=== PATIENT | female | born 1950 | race Caucasian/White ===

== ENCOUNTER → 2018-07-06 09:08 | Outpatient (CLI) | payer MEDICARE, SELFPAY ==
--- NOTE | 2018-07-06 09:24 | BD_ITS ---
STUDY: DUAL ENERGY X-RAY ABSORPTIOMETRY / DXA REASON FOR EXAM: Female, 68 years old. Postmenopausal screening TECHNIQUE: Bone Mineral Density (BMD) measurements of lumbar spine and bilateral hips were obtained. COMPARISON: None. FINDINGS: Lumbar Spine (L1-L4): g/cm2 1.107) / T-score (-0.6) / Z-score (1.0) Findings are suggestive of normal bone density with a low fracture risk. Left Femur Total: g/cm2 (0.671) / T-score (-2.7) / Z-score (-1.3) Left Femoral Neck: g/cm2 (0.579) / T-score (-3.3) / Z-score (-1.7) Right Femur Total: g/cm2 (0.714) / T-score (-2.3) / Z-score (-1.0) Right Femoral Neck: g/cm2 (0.636) / T-score (-2.9) / Z-score (-1.3) BD/Dexa Bone Density Study IMPRESSION: The patient is considered osteoporotic as outlined below according to World Stoney Organization (WHO) criteria with a high fracture risk. Reference Information: The T-score is the number of standard deviations above or below the standard which is normal for young adults at their peak bone mineral density. The World Health Organization (WHO) interprets the T-scores as follows: Above -1 Normal bone density Between -1 and -2.5 Osteopenia Equal to / or below -2.5 Osteoporosis As a practical clinical guideline, osteopenia may be graded as follows: Mild -1 through -1.5 Moderate -1.6 through -2.0 Severe -2.1 through -2.4 The Z-score is the number of standard deviations above or below age-matched controls. A Z-score of less than -1.5 would be considered abnormal. References: 1. NIH Osteoporosis and Related Bone Diseases http://www.osteo.org 2. International Society for Clinical Densitometry http://www.iscd.org 3. National Osteoporosis Foundation http://www.nof.org Electronically Signed: Larry Alaniz MD at 8:46 EDT , Service support ,
== END ==
PROVIDERS: Family Provider Family Medicine; PCP Family Medicine; Visit Provider Family Medicine
DX: Z78.0 Asymptomatic menopausal state (principal)
CPT/HCPCS: 77080

== ENCOUNTER → 2018-07-14 09:16 | Outpatient (CLI) | payer MEDICARE, SELFPAY ==
[2018-07-14 13:00] LABS: Vitamin D,25 Hydroxy 31.1 ng/mL (29.95-100.01)
[2018-07-14 13:11] LABS: Anion Gap 7 (5-15); BUN 16 mg/dL (7-18); BUN/Creat Ratio 20.9 RATIO (10-20); Calcium,Total 8.7 mg/dL (8.5-10.1); Chloride 106 mmol/L (98-107); Creatinine, Serum 0.76 mg/dL (0.55-1.02); EST Glomerular Filtration Rate 80 mL/min (>60); Est Glom Filt Rate - Afr Amer 97 mL/min (>60); Glucose 82 mg/dL (74-106); Potassium 3.8 mmol/L (3.5-5.1); Sodium Level 140 mmol/L (136-145)
== END ==
PROVIDERS: Family Provider Family Medicine; PCP Family Medicine; Visit Provider Family Medicine
DX: M81.0 Age-related osteoporosis without current pathological fracture (principal)
CPT/HCPCS: 36415; 80048; 82306

== ENCOUNTER 2021-03-09 16:11 | Emergency (ER) | payer MEDICARE, SELFPAY ==
[2021-03-09 16:12] VITALS: BP 151/77; PULSE 75; RESP 16; TEMP 36.6; O2SAT 98; BMI 18.6
--- NOTE | 2021-03-09 16:21 | EDS_ITS ---
HPI History of Present Illness Chief Complaint: Upper Extremity Injury Informant: patient Onset/Context/Timing Onset: Today Current Severity: Mild Maximum Severity: Moderate Narrative Narrative: Patient presents with injury to the left third finger. She states she was scrubbing carpets and stoved her left third finger. She felt a pop and now cannot fully straighten her finger. She is right-hand dominant. She denies paresthesias. No other injury. [facility] Medical History Osteoporosis Home Medications NK 03/09/21 [History Last Taken Unknown] Allergy/AdvReac Type Severity Reaction Status Date / Time No Known Allergies Allergy Verified 03/09/21 16:11 Social History Smoking Status: Never smoker ROS ROS ED Constitutional Constitutional ED: Denies chills or fever(s) Eyes Eyes: Denies change in vision ENT ENT ED: Denies sore throat Cardiovascular Cardiovascular: Denies chest pain Respiratory/Chest Respiratory/Chest: Denies cough or dyspnea Gastrointestinal Gastrointestinal: Denies abdominal pain, diarrhea, nausea or vomiting Genitourinary Genitourinary ED: Denies dysuria Musculoskeletal Musculoskeletal: Reports other Details: Left third finger Integumentary Denies rash Neurologic Neurologic: Denies headache(s) or weakness Psychiatric Psychiatric: Denies anxiety or depression Endocrine Endocrinology: Denies polydipsia or polyuria Allergic/Immunologic Allergic/Immunologic ED: Denies urticaria EXAM Physical Exam Const Vital Signs: 03/09/21 16:12 Temperature 97.8 F Temperature Source Temporal Pulse Rate 75 Respiratory Rate 16 Blood Pressure 151/77 H Blood Pressure Mean 101 Pulse Ox 98 Oxygen Delivery Method Room Air Positive well nourished and well developed General Appearance ED: well developed HEENT normocephalic Eyes EOMs intact bilaterally Chest Wall inspection of chest normal and palpation of chest normal Resp normal respiratory effort and clear to auscultation bilaterally Cardio regular rate and regular rhythm GI non-tender Palpation: soft Extremity Extremity Narrative: Left third finger held slightly in the flexed position, most pronounced at the DIP joint. Mild tenderness to palpation. Patient unable to fully extend her finger. I am easily able to passively extend her finger. Normal cap refill and sensation. Neuro oriented x3 Sensorium / Orientation: alert Psych mental status grossly normal Skin Rashes: no rashes MDM MDM Radiography Diagnostic Testing: Radiology Impression Hand X-Ray 03/09/21 16:30 IMPRESSION: Negative left hand x-rays. at 1657 Reported and signed by: Omer Aranda MD Electronically Signed: Omer Aranda MD at 16:56 EDT Tel , Service support , Treatment and Re-Evaluation Comments:: Patient declined anything for pain while here. X-rays are obtained. No bony fracture noted. Clinically patient does have a mallet finger. She is splinted in extension and advised that this cannot come off her finger until she is seen for follow-up. She will be referred to Dr. Wally Carlson, on-call for orthopedics. Discharge Plan Triage Chief Complaint: Upper Extremity Injury ED Provider: Kerri Boss Dx/Rx/DC Orders Clinical Impression: Mallet deformity of left middle finger Instructions: ED Mallet Finger Prescriptions: No Action NK RF: 0 Primary Care Provider: Alfredo Morris Referrals: Alfredo Morris MD [Primary Care Provider] - Wally Carlson MD [STAFF PHYSICIAN] - 1 Week Disposition Disposition: Home, self care
--- NOTE | 2021-03-09 16:30 | RAD_ITS ---
EXAM: XR LEFT HAND COMPLETE, 3 OR MORE VIEWS : 1950 CLINICAL INDICATION: injury* PT UNABLE TO REMOVE WEDDING RING FOR EXAM TECHNIQUE: Frontal, lateral and oblique views of the left hand. This report was created using [employer] report generation technology. COMPARISON: None. FINDINGS: BONES/JOINTS: Unremarkable. No acute fracture. No subluxation. Normal alignment. Preservation of the joint space. No sclerotic or destructive changes observed. SOFT TISSUES: Unremarkable. No soft tissue swelling or gas. No radiopaque foreign body. RAD/Hand Min 3 Views IMPRESSION: Negative left hand x-rays. at 3307 Reported and signed by: Omer Aranda MD Electronically Signed: Omer Aranda MD at 16:56 EDT Tel , Service support ,
== END 2021-03-09 17:36 | disposition home or self-care (01) ==
PROVIDERS: Emergency Provider Emergency Medicine; PCP Family Medicine
DX: M20.012 Mallet finger of left finger(s) (principal)
CPT/HCPCS: 73130; 99282

== ENCOUNTER 2021-11-28 08:16 | Outpatient (CLI) | payer MEDICARE, SELFPAY ==
--- NOTE | 2021-11-28 08:25 | BD_ITS ---
STUDY: DUAL ENERGY X-RAY ABSORPTIOMETRY / DXA REASON FOR EXAM: Female, 71 years old. M810. Patient is postmenopausal. TECHNIQUE: Bone Mineral Density (BMD) measurements of lumbar spine and bilateral hips were obtained. COMPARISON: Comparison is made with prior study 07/06/2018. FINDINGS: Lumbar Spine (L1-L4): g/cm2 (0.957) / T-score (-0.8) / Z-score (1.4) Findings are suggestive of normal bone density with a low fracture risk. Left Femur Total: g/cm2 (0.674) / T-score (-2.2) / Z-score (-0.6) Left Femoral Neck: g/cm2 (0.545) / T-score (-2.7) / Z-score (-0.9) Right Femur Total: g/cm2 (0.712) / T-score (-1.9) / Z-score (-0.3) Right Femoral Neck: g/cm2 (0.558) / T-score (-2.6) / Z-score (-0.7) The T-Scores on the most recent prior examination were: Lumbar Spine (L1-L4): There has been worsening of bone density since the previous examination. Left Femur Total: which represents an improvement of 9.8%. Right Femur Total: which represents an improvement of 8.5%. BD/Dexa Bone Density Study IMPRESSION: The patient is considered osteoporotic as outlined below according to World Stoney Organization (WHO) criteria with a high fracture risk. There has been improvement of bone density since the previous examination. Reference Information: The T-score is the number of standard deviations above or below the standard which is normal for young adults at their peak bone mineral density. The World Health Organization (WHO) interprets the T-scores as follows: Above -1 Normal bone density Between -1 and -2.5 Osteopenia Equal to / or below -2.5 Osteoporosis As a practical clinical guideline, osteopenia may be graded as follows: Mild -1 through -1.5 Moderate -1.6 through -2.0 Severe -2.1 through -2.4 The Z-score is the number of standard deviations above or below age-matched controls. A Z-score of less than -1.5 would be considered abnormal. References: 1. NIH Osteoporosis and Related Bone Diseases www osteo.org 2. International Society for Clinical Densitometry www iscd.org 3. National Osteoporosis Foundation www nof.org Electronically Signed: Shabbir Adam MD at 8:37 EST ,
[2021-11-28 11:27] LABS: Anion Gap 3 (5-15); BUN 16 mg/dL (7-18); BUN/Creat Ratio 20.1 RATIO (10-20); Calcium,Total 8.7 mg/dL (8.5-10.1); Chloride 108 mmol/L (98-107); Cholesterol 231 mg/dL (200); EST Glomerular Filtration Rate 75 mL/min (>60); Est Glom Filt Rate - Afr Amer 91 mL/min (>60); Glucose 83 mg/dL (74-106); High Density Lipoprotein 100 mg/dL; Potassium 4.5 mmol/L (3.5-5.1); Sodium Level 141 mmol/L (136-145); Triglycerides 66 mg/dL; Very Low Density Lipoprotein 13 mg/dL (5-40)
== END 2021-11-28 23:59 | disposition home or self-care (01) ==
LOC: OPBD 08:17
PROVIDERS: PCP Family Medicine; Visit Provider Family Medicine
DX: M81.0 Age-related osteoporosis without current pathological fracture (principal); Z78.0 Asymptomatic menopausal state
CPT/HCPCS: 36415; 77080; 80048; 80061

== ENCOUNTER → 2022-11-19 | Outpatient (CLI) | payer MEDICARE, SELFPAY ==
[2022-11-19 15:10] LABS: Absolute Lymphocyte Count 1.57 X10^3/uL (0.83-4.51); Absolute Neutrophil Count 2.8 X10^3/uL (2.0-7.7); Basophil# 0.05 X10^3/uL; Eosinophil# 0.11 X10^3/uL; Eosinophils% 2.3 % (0-5); Hematocrit 40.1 % (37-47); Lymphocyte # 1.57 X10^3/ul (0.83-4.51); Lymphocyte % 32.5 % (19-41); Mean Corp Hgb Conc 32.4 g/dL (32-36); Mean Corpuscular Hgb 31.2 pg (27.0-32.0); Mean Corpuscular Volume 96.2 fL (81-99); Mean Platelet Vol. 9.4 fl (6.2-12.0); Monocyte# 0.29 X10^3/uL; NRBC Flagged by Analyzer 0 % (0-5); Platelet Count 215 K/mm3 (150-450); RBC Distribution Width CV 11.9 % (11.6-14.6); RBC Distribution Width SD 41.9 fl (35.1-43.9); Red Blood Count 4.17 M/mm3 (4.2-5.4); White Blood Count 4.8 K/mm3 (4.4-11.0)
[2022-11-19 15:37] LABS: ALB/GLOB Ratio 1.2 RATIO (0.9-2.4); AST(SGOT) 19 U/L (15-37); Alanine Aminotransfer ALT/SGPT 18 U/L (13-56); Albumin, Serum 3.9 g/dL (3.2-5.0); Alkaline Phosphatase 77 U/L (45-117); Anion Gap 6 (5-15); BUN 23 mg/dL (7-18); BUN/Creat Ratio 27.8 RATIO (10-20); Calcium,Total 9.4 mg/dL (8.5-10.1); Chloride 107 mmol/L (98-107); Creatinine, Serum 0.83 mg/dL (0.55-1.02); EST Glomerular Filtration Rate 72 mL/min (>60); Est Glom Filt Rate - Afr Amer 87 mL/min (>60); Globulin 3.2 g/dL (2.2-4.2); Glucose 81 mg/dL (74-106); Protein, Total 7.1 g/dL (6.4-8.2); Sodium Level 143 mmol/L (136-145)
== END | disposition home or self-care (01) ==
LOC: MFPLAB 11:42
PROVIDERS: PCP Family Medicine; Referring Provider Family Medicine; Visit Provider Nurse Practitioner Family
DX: R31.9 Hematuria, unspecified (principal)
CPT/HCPCS: 36415; 80053; 82043; 85025; 87086; 87088

== ENCOUNTER → 2022-12-10 | Outpatient (CLI) | payer MEDICARE, SELFPAY ==
--- NOTE | 2022-12-10 | CYSPIN_PTH ---
PATIENT: GARRETT AGGARWAL LOC: [facility] U#:[id number] AGE/SX: 72/F ROOM: RE12/10/[address]: Dr. Janny Kline MD : 1950 BED: DIS: 12/10/2022 SPEC #: [id number] RECD: 12/11/22 09:26 STATUS: ANNEMARIE REMynor #: [id number] HOLLI: 12/10/22 00:[address]: Janny Kline DEPT: CYTOLOGY RECD BY: Osiel Gann ENTERED: 12/11/22 09:26 SP TYPE: CYSPIN FL OTHR DR: Dr. Alfredo Morris MD Tissues: Urine Procedures: Pap Stain (control) Special Stain Group II Cytospin Fluid HEADER OPERATION: Not noted PRE-OP DIAGNOSIS: Gross hematuria TISSUE SUBMITTED: Urine for cytology DIAGNOSIS CYTOLOGY Urine for cytology (cytospin): Atypical urothelial cells present (LISA), Roselia Cytology Category III). Bloody specimen. See comment. DESI:tonie 12/12/2022 COMMENT Clinical correlation and appropriate follow up are necessary. The Roselia System for urine cytology diagnostic categorization was used in the evaluation of this case. CYTOLOGY STUDY Slides are reviewed. CYTOLOGY GROSS Received is 15 ml of dark brown fluid labeled with the patient's name and and designated per the requisition as urine. Submitted for cytology preparation. / tonie 12/11/2022 TC:5 CPT: 06296
[2022-12-10 17:52] LABS: Cytology, Body Fluid / CSF SEE PATHOLOGY REPORT
== END | disposition home or self-care (01) ==
PROVIDERS: PCP Family Medicine; Visit Provider Urology
DX: R31.0 Gross hematuria (principal)
CPT/HCPCS: 88108; 88313

== ENCOUNTER → 2022-12-24 | Outpatient (CLI) | payer MEDICARE, SELFPAY ==
--- NOTE | 2022-12-24 13:48 | CT_ITS ---
STUDY: CT ABDOMEN AND PELVIS WITH AND WITHOUT CONTRAST REASON FOR EXAM: Female, 72 years old. GROSS HEMATURIA RADIATION DOSAGE (If Supplied By Facility): CTDIvol = ( 10.10 ) mGy, DLP = ( 1066.11 ) mGycm TECHNIQUE: Transaxial images were obtained from the dome of the diaphragm to the symphysis pubis without oral contrast. 100 CC ISOVUE 30 was administered. Sagittal and coronal images were reconstructed. Individualized dose optimization techniques were used for this CT. COMPARISON: None. FINDINGS: Nodular density seen in the anterior aspect of the left lower lobe. The largest nodule measures [address] scan of the thorax is recommended for further evaluation. The visualized portions of the heart are within normal limits. There is a 1.9 cm x 1.6 cm septated cyst in the left lobe of the liver. Small gallstones along the dependent portion of the gallbladder lumen. Normal spleen. Normal pancreas. Normal bilateral adrenal glands. Tiny nonobstructive right intrarenal calculi are seen. There is a 1 cm x 0.6 cm calculus at the left ureteropelvic junction causing a mild degree of left hydronephrosis. Normal visualized stomach. Normal small intestine. Normal colon. The appendix is visualized and appears normal. Normal abdominal aorta. Normal inferior vena cava. Normal retroperitoneum. Normal urinary bladder. Normal abdominal wall. There are degenerative changes of the visualized lumbar spine. CT/CT Abd/Pelvis W/WO Contrast IMPRESSION: Mild degree of the left hydronephrosis due to a 1 cm x 0.6 and metaphysis of the left ureteropelvic junction. Tiny nonobstructive right intrarenal calculi. Small pulmonary nodule seen at the left lung base as described. The largest measures 1 cm. Correlation with a dedicated CT scan of the thorax is recommended for further evaluation Small hepatic cyst seen in the left lobe of the liver. Small gallstones along the dependent portion of the gallbladder lumen. Electronically Signed: Shabbir Adam MD at 13:25 EDT ,
[2022-12-24 14:20] LABS: CREATININE FINGERSTICK < 0.9 mg/dL (0.55-1.02); EGFR FINGERSTICK > 60.0000 mL/min (>60)
== END | disposition home or self-care (01) ==
PROVIDERS: PCP Family Medicine; Referring Provider Urology; Visit Provider Urology
DX: R31.0 Gross hematuria (principal); R10.9 Unspecified abdominal pain
CPT/HCPCS: 74178; Q9967

== ENCOUNTER → 2022-12-26 | Outpatient (CLI) | payer MEDICARE, SELFPAY ==
--- NOTE | 2022-12-26 11:35 | RAD_ITS ---
EXAM: XR ABDOMEN, 1 VIEW CLINICAL INDICATION: KUB- STONES TECHNIQUE: Frontal supine view of the abdomen/pelvis. This report was created using [employer] report generation technology. COMPARISON: None. FINDINGS: LOWER THORAX: No acute pathology. GASTROINTESTINAL TRACT: Unremarkable. Non-obstructive. No bowel or stomach distention. ORGANS: Unremarkable as visualized. No organomegaly. No abnormal calcifications. BONES/JOINTS: No acute pathology. SOFT TISSUES: No acute pathology. RAD/Abdomen Single View IMPRESSION: Non-obstructive bowel gas pattern. Electronically Signed: Omer Aranda MD at 21:58 EDT ,
== END | disposition home or self-care (01) ==
LOC: MTRAD 11:34
PROVIDERS: PCP Family Medicine; Referring Provider Urology; Visit Provider Urology
DX: N20.0 Calculus of kidney (principal)
CPT/HCPCS: 74018

== ENCOUNTER → 2023-01-05 | Outpatient (CLI) | payer MEDICARE, SELFPAY ==
--- NOTE | 2023-01-05 15:01 | CT_ITS ---
ACR Level 3 findings have been noted. An addendum which confirms receipt of the report will follow. There is INDICATION: LUNG NODULE EXAMINATION: CT Chest W/ Contrast Injection TECHNIQUE: Helically acquired images were obtained of the chest following administration of IV contrast. A radiation dose optimization technique was used for this scan. 3D postprocessing images including MIPS were reviewed. IV Contrast dosage and agent: IV 100mL Isovue-300 COMPARISON: None. FINDINGS: Lungs: There are clustered nodular and tree-in-bud opacities involving the lingula and left lower lobe Mediastinum: The cardiomediastinal silhouette is not enlarged. No mediastinal, hilar or axillary adenopathy. The thoracic aorta is unremarkable. No obvious filling defect seen within the visualized pulmonary arteries. Pleura: Unremarkable Bones/Soft tissues: No suspicious osseous or soft tissue lesions Upper abdomen: No visualized abnormalities in the upper abdomen. CT/Chest WITH Contrast IMPRESSION: Clustered nodular and tree-in-bud opacities involving the lingula and left lower lobe. This is most concerning for atypical infection. Recommend short-term follow-up chest CT to ensure resolution. Electronically Signed: Noble Kelley MD at 19:14 EDT ,
== END | disposition home or self-care (01) ==
LOC: CT 14:53
PROVIDERS: PCP Family Medicine; Referring Provider Family Medicine; Visit Provider Family Medicine
DX: R91.1 Solitary pulmonary nodule (principal)
CPT/HCPCS: 71260; Q9967

== ENCOUNTER → 2023-01-06 | Outpatient (CLI) | payer MEDICARE, SELFPAY | END | disposition home or self-care (01) | LOC: PSN 12:18 | PROVIDERS: PCP Family Medicine; Referring Provider Urology; Visit Provider Urology | DX: N20.1 Calculus of ureter (principal) | CPT/HCPCS: 93005 ==

== ENCOUNTER 2023-01-15 11:16 | Day surgery (SDC) | payer MEDICARE, SELFPAY ==
[2023-01-15] VITALS (7 sets, daily range): BP systolic 133–172; BP diastolic 55–98; PULSE 61–94; RESP 16; TEMP 35.8–36.6; O2SAT 97–100; BMI 17.9
[2023-01-15] MEDS: Lactated Ringers 1,000 ML 15 ML IV (11:56)
--- NOTE | 2023-01-15 12:12 | PCM.HP.STD ---
HPI - General General Chief Complaint: Gross hematuria, left UPJ calculus with obstruction HPI Narrative GARRETT AGGARWAL, is a 72 F who presents for definitive management of a left UPJ stone with obstruction and gross hematuria. Informed consent has been obtained. She has had no nausea, vomiting, fever, chills. She has a negative preoperative urine culture. [facility] Medical History (Updated 01/15/23 @ 12:[address] Janny Kline MD) Gross hematuria History of perineal laceration History of stress test Hoarseness Non-smoker Obstruction of left ureteropelvic junction due to stone Osteoporosis Wears contact lenses Wears glasses Home Medications alendronate 70 mg-cholecalciferol (vitamin D3) 2,800 unit tablet 1 tab PO QWEEK 01/09/23 [History Last Taken Unknown] Allergy/AdvReac Type Severity Reaction Status Date / Time No Known Allergies Allergy Verified 01/15/23 11:49 Surgical History History of colonoscopy Social History Smoking Status: Never smoker ROS Constitutional Constitutional: Reports systems reviewed and no addt'l complaints, except as documented Eyes Eyes: Reports systems reviewed and no addt'l complaints, except as documented ENT HEENT: Reports systems reviewed and no addt'l complaints, except as documented Cardiovascular Cardiovascular: Denies chest pain, diaphoresis, dizziness or dyspnea Respiratory/Chest Respiratory/Chest: Reports systems reviewed and no addt'l complaints, except as documented; Denies change in mental status, chest congestion, chest tightness or cough Gastrointestinal Gastrointestinal: Denies anorexia, nausea or vomiting Genitourinary Genitourinary: Reports hematuria; Denies flank pain Musculoskeletal Musculoskeletal: Reports systems reviewed and no addt'l complaints, except as documented Integumentary Integumentary: Reports systems reviewed and no addt'l complaints, except as documented Neurologic Neurologic: Reports systems reviewed and no addt'l complaints, except as documented Psychiatric Psychiatric: Reports systems reviewed and no addt'l complaints, except as documented Endocrine Endocrinology: Reports systems reviewed and no addt'l complaints, except as documented Hematologic/Lymphatic Hematologic/Lymphatic: Reports systems reviewed and no addt'l complaints, except as documented Allergic/Immunologic Allergic/Immunologic: Reports systems reviewed and no addt'l complaints, except as documented Vital Signs Vital Signs Vital Signs: 01/15/23 11:50 01/15/23 11:50 Temperature 97.4 F L Temperature Source Temporal Pulse Rate 61 Respiratory Rate 16 Respiratory Pattern Normal Blood Pressure 133/55 H Blood Pressure Mean 81 Blood Pressure Source Monitor Blood Pressure Position Sitting Blood Pressure Location Left Arm Pulse Ox 100 Oxygen Delivery Method Room Air Weight Weight: 49 kg Body Mass Index (BMI) 17.9 Physical Exam Const alert, oriented x3 and no apparent distress General Appearance: cooperative, comfortable and well kempt HEENT normocephalic and head/scalp atraumatic Eyes General Eye: normal appearance of both eyes Neck supple General: trachea midline Lymph Lymphatic: no lymphedema noted Chest inspection of chest normal Resp normal respiratory effort, normal air movement and no retractions Cardio regular rate and regular rhythm GI normal to inspection, nondistended, normoactive bowel sounds no CVA tenderness Back/Spine no CVA tenderness Extremity normal to inspection Skin no rashes or lesions noted, no wounds, skin turgor normal, no jaundice, no petechiae and no mottling Neuro oriented x3, CN's II-XII intact bilaterally and moves all extremities Psych mental status grossly normal, thought process normal and cooperative Assessment & Plan Assessment/Plan (1) Obstruction of left ureteropelvic junction due to stone: PLAN: Plan cystoscopy with left ureteral stent insertion, left extracorporeal shockwave lithotripsy
[2023-01-15] MEDS: Cefazolin 2 GM in 0.9% Normal Saline 100 ML IV (12:13)
--- NOTE | 2023-01-15 12:16 | DCINST_ITS ---
Discharge Instructions Diet Discharge Diet: No restrictions Activity Discharge Activity: Return to Normal Activity May resume sexual activity in: No Restrictions Dressing / Incision Call your doctor if you observe: Fever of 101 or Higher, Inability to urinate and Inability to have a bowel movement Follow Up Care Please Follow Up With: Janny Kline MD When: call the office for appt Test Results: Test results from this visit will be discussed in further detail at your follow- up appointment, if applicable. Discharge Plan Admission Attending Provider: Janny Kline Primary Care Provider: Alfredo Morris Discharge Orders/Prescriptions Prescriptions: New oxycodone-acetaminophen [Percocet] 5-325 mg tablet 1 tab PO Q8H PRN (Reason: pain) 3 Days Qty: 10 0RF cephalexin [cephalexin] 500 mg capsule 500 mg PO Q12 3 Days Qty: 6 0RF phenazopyridine [Pyridium] 200 mg tablet 200 mg PO TID PRN PRN (Reason: Bladder Spasms) 7 Days Qty: 30 0RF Continued alendronate-vitamin D3 70 mg- 2,800 unit Tablet 1 tab PO QWEEK Referrals / Follow Up: Alfredo Morris MD [Primary Care Provider] - Disposition Disposition (needs filled in before D/C Order can be placed): Home, Self Care
--- NOTE | 2023-01-15 12:45 | PCM.OPRPT ---
Report of Operation Date of Procedure: 01/15/23 Pre-Operative Diagnosis: Left UPJ calculus with hydronephrosis Post-Operative Diagnosis: Same Surgery/Procedure Performed:: Cystoscopy, insertion of left ureteral stent, left renal extracorporal shockwave lithotripsy Surgeon: Janny Kline Type of Anesthesia: General Specimen's removed: None Description of Procedure: The patient is a 72-year-old female with a left renal calculus seen on CT scan likely moving back and forth between the kidney and the ureteropelvic junction. She now presents for intervention with shockwave lithotripsy and stent insertion. Informed consent was obtained. The patient was taken to the operating room and placed on the operating room table. Anesthesia monitored the head, neck, airway, IV access and vital signs throughout the case. Once anesthesia was appropriately ministered, the patient was placed in dorsal lithotomy position was prepped and draped in usual sterile fashion. The cystoscope was inserted through the urethra under direct visualization into the urinary bladder. The bladder mucosa in its entirety was visualized and found to be without evidence of mass, ulceration, lesion or foreign body. The left ureteral orifice was identified and gently intubated with a 0.035 Glidewire that was seen beyond the stone on fluoroscopy. A 4.5 Nigerien by 26 cm JJ stent was then placed over the wire with good positioning in the renal pelvis as well as the urinary bladder. At this time the urinary bladder was emptied and the patient was repositioned. The stone was identified and 3000 shocks were applied to the calculus. It appeared to be well fragmented at the conclusion of the case. The patient was then awakened and taken to the recovery room in good condition. There were no complications during this procedure. Grafts/Implants Used: 4.5 x 26 cm JJ stent Complications None Admit VTE Documentation VTE Present on Admission: Yes VTE Mechan Device Prophylaxis: SCD's VTE Pharm Prophylaxis ordered?: No Reason prophylaxis not ordered:: Treatment Not Indicated
== END 2023-01-15 15:05 | disposition home or self-care (01) ==
LOC: SDC 11:19 → AC 11:22
PROVIDERS: PCP Family Medicine; Referring Provider Urology; Visit Provider Urology
PROC: (CPT 50590; principal; 2023-01-15 15:40)
DX: N13.2 Hydronephrosis with renal and ureteral calculous obstruction (principal); R31.0 Gross hematuria; Z87.828 Personal history of other (healed) physical injury and trauma
CPT/HCPCS: 50590; 52332; 00873; J7120; J2405

== ENCOUNTER → 2023-01-26 | Outpatient (CLI) | payer MEDICARE, SELFPAY ==
--- NOTE | 2023-01-26 16:09 | RAD_ITS ---
STUDY: X-RAY - ABDOMEN/PELVIS REASON FOR EXAM: Female, 72 years old. Kidney stone. 11 days post ESWL and stent placement. TECHNIQUE: Single AP view of the abdomen / pelvis. COMPARISON: December 26, 2022 FINDINGS: The lung bases are not included. There is an unremarkable bowel gas pattern. There is no demonstrated free abdominal air. The visualized liver, spleen and kidneys are grossly normal in size and morphology. There is now a left-sided ureteral stent. The calcifications previously seen overlying the left kidney are no longer noted. There are no new calcifications. There are calcified phleboliths in the pelvis. Stable osseous structures. RAD/Abdomen Single View IMPRESSION: Left ureteral stent. The calcification seen in the left kidney on the prior exam are no longer present. Electronically Signed: Francesco Miranda DO at 23:58 EDT ,
== END | disposition home or self-care (01) ==
LOC: MTRAD 16:07
PROVIDERS: PCP Family Medicine; Referring Provider Urology; Visit Provider Urology
DX: N20.0 Calculus of kidney (principal); N13.0 Hydronephrosis with ureteropelvic junction obstruction
CPT/HCPCS: 74018

== ENCOUNTER → 2023-02-02 | Outpatient (CLI) | payer MEDICARE, SELFPAY ==
--- NOTE | 2023-02-02 09:14 | RAD_ITS ---
STUDY: X-RAY - ABDOMEN/PELVIS REASON FOR EXAM: Female, 72 years old. Kidney stones. Follow-up. TECHNIQUE: Single AP view of the abdomen / pelvis on 2 images. COMPARISON: January 26, 2023. FINDINGS: Normal visualized lung bases. There is an unremarkable bowel gas pattern. There is no demonstrated free abdominal air. The visualized liver, spleen and kidneys are grossly normal in size and morphology. Left ureteral stent unchanged in position or alignment. Normal soft tissue structures. Normal visualized osseous structures. RAD/Abdomen Single View IMPRESSION: Stable left ureteral stent. No definite renal calculi. No acute abnormality. Electronically Signed: Aman Croft, at 11:32 EDT ,
== END | disposition home or self-care (01) ==
PROVIDERS: PCP Family Medicine; Referring Provider Urology; Visit Provider Urology
DX: N20.0 Calculus of kidney (principal)
CPT/HCPCS: 74018

== ENCOUNTER 2023-02-05 09:59 | Day surgery (SDC) | payer MEDICARE, SELFPAY ==
--- NOTE | 2023-02-05 09:20 | CALC_PTH ---
PATIENT: GARRETT AGGARWAL [place] [facility] [id number] AGE/SX: 72/F ROOM: RE02/05/[address]: Dr. Janny Kline MD : 1950 BED: DIS: 02/05/2023 SPEC #: [id number] RECD: 02/05/23 17:03 STATUS: ANNEMARIE LAL #: [id number] HOLLI: 02/05/23 09:[address]: Janny Kline DEPT: SURGICAL PATHOLOGY RECD BY: Sumi Estrada ENTERED: 02/06/23 09:32 SP TYPE: Calculi OTHR DR: Dr. Alfredo Morris MD Tissues: CALCULI Procedures: Surgery Specimen Level I HEADER OPERATION: Cysto, ureteroscopy, stent, basket PRE-OP DIAGNOSIS: Ureteral calculi, right flank pain, UTI TISSUE SUBMITTED: Left ureteral calculus GROSS DIAGNOSIS Fragments of stone mixed with blood clots, clinically left ureteral calculus (gross only). SJ:tonie 02/09/2023 COMMENT The calculus is submitted in its entirety for chemical stone analysis. The results from this study will be reported separately. GROSS DESCRIPTION Received without fixative labeled with the patient's name and designated left ureteral calculus. The specimen consists of multiple fragments of stone mixed with blood clots measuring in aggregate 0.5 x 0.5 x 0.1 cm. The stones are brownish in color. The entire specimen is submitted for stone analysis. / DESI:tonie 02/06/2023 CPT: 25003
[2023-02-05] MEDS: Lactated Ringers 1,000 ML 15 ML IV (10:32)
[2023-02-05 10:35] VITALS: BP 119/53; PULSE 76; RESP 18; TEMP 36.8; O2SAT 100; BMI 17.8
--- NOTE | 2023-02-05 11:53 | DCINST_ITS ---
Discharge Instructions Diet Discharge Diet: No restrictions Activity Discharge Activity: Return to Normal Activity Dressing / Incision Call your doctor if you observe: Fever of 101 or Higher, Inability to urinate and Inability to have a bowel movement Follow Up Care Please Follow Up With: Janny Kline MD When: Call the office for appointment Test Results: Test results from this visit will be discussed in further detail at your follow- up appointment, if applicable. Discharge Plan Admission Attending Provider: Janny Kline Primary Care Provider: Alfredo Morris Discharge Orders/Prescriptions Prescriptions: New ondansetron HCl [ondansetron HCl] 8 mg tablet 8 mg PO Q8H PRN PRN (Reason: Nausea) 7 Days Qty: 20 0RF Continued alendronate-vitamin D3 70 mg- 2,800 unit Tablet 1 tab PO QWEEK phenazopyridine [Pyridium] 200 mg tablet 200 mg PO TID PRN PRN (Reason: Bladder Spasms) 7 Days Qty: 30 0RF oxycodone-acetaminophen [Percocet] 5-325 mg tablet 1 tab PO Q8H PRN (Reason: pain) 3 Days Qty: 10 0RF cephalexin 500 mg capsule 500 mg PO Q12 3 Days Qty: 6 0RF Referrals / Follow Up: Alfredo Morris MD [Primary Care Provider] - Disposition Disposition (needs filled in before D/C Order can be placed): Home, Self Care
--- NOTE | 2023-02-05 11:58 | PCM.OPRPT ---
Report of Operation Date of Procedure: 02/05/23 Pre-Operative Diagnosis: Left ureteral calculi Post-Operative Diagnosis: Same Surgery/Procedure Performed:: Cystoscopy, left ureteroscopy holmium laser lithotripsy, stone basket extraction, left ureteral stent change Surgeon: Janny Kline Type of Anesthesia: General Specimen's removed: Stone fragments from the left ureter Description of Procedure: The patient is a 72-year-old female who had an extracorporal shockwave lithotripsy with left ureteral stent insertion and now presents with stone visible on her KUB alongside the stent with uncontrolled nausea, vomiting and pain. Informed consent was obtained and she agrees to proceed with ureteroscopy with laser lithotripsy and stent change. The patient was taken to the operating room and placed on the operating room table. Anesthesia monitored the head, neck, airway, IV access and vital signs throughout the case. Once anesthesia was appropriately administered, the patient was placed into dorsal lithotomy position and was prepped and draped in usual sterile fashion. The cystoscope was then inserted through the urethra under direct visualization into the urinary bladder. The left ureteral stent was observed. A 0.035 Glidewire was inserted alongside the stent which was then removed. The semirigid ureteroscope was then used to cannulate the left ureteral orifice and stones were identified in the mid left ureter. A stone basket was used to extract multiple small fragments until the length of the ureteroscope was completely utilized. At this time a flexible ureteroscope was inserted over a second 0.035 Glidewire. Ureteroscopy was performed all the way up to the renal pelvis and the calyces were visualized finding no evidence of further stones. At this time the ureter was visualized in its entirety finding no evidence of injury or obstruction or further stone. The cystoscope was then used to insert a 6 Kinyarwanda 26 cm JJ stent over the remaining safety wire. Good positioning was obtained in the renal pelvis as well as the urinary bladder. The bladder was then emptied of debris and stone fragments. The cystoscope was removed and the patient was awakened and taken to the recovery room in good condition. There were no complications during this procedure Grafts/Implants Used: 6 x 26 cm JJ stent Complications None Admit VTE Documentation VTE Present on Admission: Yes VTE Mechan Device Prophylaxis: SCD's VTE Pharm Prophylaxis ordered?: No Reason prophylaxis not ordered:: Treatment Not Indicated
[2023-02-05] MEDS: Cefazolin 2 GM in 0.9% Normal Saline 100 ML IV (13:06)
[2023-02-05 14:15] VITALS: BP 119/53; BP 144/78; PULSE 102; RESP 14; TEMP 36.3; O2SAT 97
[2023-02-05 14:30] VITALS: BP 119/53; BP 145/77; PULSE 96; RESP 18; O2SAT 97
[2023-02-05 14:45] VITALS: BP 119/53; BP 147/78; PULSE 93; RESP 18; TEMP 36.3; O2SAT 96
[2023-02-05 16:03] VITALS: BP 119/53; BP 150/83; PULSE 90; RESP 16; TEMP 36.7; O2SAT 96
[2023-03-01 18:37] LABS: Source LEFT URETER
== END 2023-02-05 16:04 | disposition home or self-care (01) ==
LOC: SDC 10:00 → AC 10:02
PROVIDERS: PCP Family Medicine; Referring Provider Urology; Visit Provider Urology
PROC: 0TJ98ZZ Inspection of Ureter, Via Natural or Artificial Opening Endoscopic (ICD-10-PCS; CPT 52352; principal; 2023-02-05 09:10)
DX: N20.1 Calculus of ureter (principal); R11.2 Nausea with vomiting, unspecified; Z87.828 Personal history of other (healed) physical injury and trauma; R10.9 Unspecified abdominal pain; N39.0 Urinary tract infection, site not specified
CPT/HCPCS: 52356; 00873; 76000; 82360; 88300; J7120; C2617; J2405

== ENCOUNTER → 2023-04-09 | Outpatient (CLI) | payer MEDICARE, SELFPAY ==
--- NOTE | 2023-04-09 15:45 | CT_ITS ---
INDICATION: f/u CT from 01/18, lung nodules EXAMINATION: CT CHEST WITHOUT CONTRAST TECHNIQUE: Helically acquired images were obtained of the chest. A radiation dose optimization technique was used for this scan. IV Contrast dosage and agent: None. COMPARISON: Contrast enhanced chest CT from 01/05/2023 FINDINGS: LUNGS, PLEURA AND LARGE AIRWAYS: Slightly hyperexpanded lungs again noted. Stable appearance of several scattered bilateral, multilobar peripheral and subpleural small pulmonary nodules with tree-in-bud clustered opacities within left upper lobe and left lower lobe. Stable appearance of mild peripheral scarring versus atelectasis within anterior basilar left lower lobe with somewhat tubular nodular opacity extending from periphery, suggestive of mucoid bronchiolar impaction. Stable mild linear scarring right middle lobe and left upper lobe. No pneumothorax or pleural effusion. THYROID: Unremarkable as visualized. HEART AND PERICARDIUM: Normal size heart with no significant coronary arterial calcifications. No pericardial effusion. VESSELS: Atherosclerotic calcifications with no thoracic aortic aneurysm. MEDIASTINUM AND ADORE: No mediastinal or hilar adenopathy. Esophagus is unremarkable. No hiatal hernia. UPPER ABDOMEN: Benign 1.7 cm cyst within left lobe of liver requiring no additional follow-up. Partially imaged kidneys with a few small nonobstructing calcified stones measuring no larger than 3 mm. BONES: Stable skeletal degenerative changes. CT/Chest without Contrast IMPRESSION: 1. Stable appearance of mild COPD with multiple bilateral small pulmonary nodular opacities. Findings likely represent benign post infectious etiology but follow-up as clinically warranted (based on symptomatology and/or concern for pulmonary neoplasm or metastatic disease). Otherwise, consider follow-up low-dose chest CT in 12 months to reassess. 2. Nonobstructing bilateral nephrolithiasis, incompletely imaged. 3. Other nonurgent findings within body of report. Electronically Signed: Benji Marion MD at 4:44 EDT ,
== END | disposition home or self-care (01) ==
LOC: CT 15:44
PROVIDERS: PCP Family Medicine; Referring Provider Family Medicine; Visit Provider Family Medicine
DX: R91.1 Solitary pulmonary nodule (principal)
CPT/HCPCS: 71250

== ENCOUNTER → 2023-05-01 | Outpatient (CLI) | payer MEDICARE, SELFPAY ==
--- NOTE | 2023-05-01 11:57 | US_ITS ---
HISTORY: L HYDRONEPHROSIS/URETAL STONE -- LITHOTRIPSY 6 WEEKS AGO. TECHNIQUE: Alvarenga scale and color doppler images were obtained of the kidneys. 69 images. COMPARISON: CT 12/24/2022. FINDINGS: RIGHT KIDNEY: 10 cm in length with a cortical thickness of 1.5 cm. Contour and echogenicity unremarkable. No hydronephrosis. No gross renal mass demonstrated. LEFT KIDNEY: 10.5 cm in length with a cortical thickness of 1.4 cm. Contour and echogenicity unremarkable. No hydronephrosis. No gross renal mass demonstrated. URINARY BLADDER: Unremarkable at 95 cc and a wall thickness of 3 mm. Bilateral ureteral jets visualized. US/Kidney and Bladder IMPRESSION: Unremarkable examination of the kidneys. No sonographic evidence of hydronephrosis. Electronically Signed: Yaima Morris MD at 10:09 EDT ,
== END | disposition home or self-care (01) ==
PROVIDERS: PCP Family Medicine; Referring Provider Urology; Visit Provider Urology
DX: N20.1 Calculus of ureter (principal); N13.30 Unspecified hydronephrosis
CPT/HCPCS: 76770

== ENCOUNTER → 2024-08-08 | Outpatient (CLI) | payer MEDICARE, SELFPAY ==
[2024-08-08 17:56] LABS: Hematocrit 39.6 % (37-47); Mean Corp Hgb Conc 32.8 g/dL (32-36); Mean Corpuscular Hgb 31.2 pg (27.0-32.0); Platelet Count 227 K/mm3 (150-450); RBC Distribution Width CV 11.3 % (11.6-14.6); RBC Distribution Width SD 39.2 fl (35.1-43.9); Red Blood Count 4.17 M/mm3 (4.2-5.4); White Blood Count 6.6 K/mm3 (4.4-11.0)
[2024-08-08 18:22] LABS: Iron 65 ug/dL (50-170)
== END | disposition home or self-care (01) ==
PROVIDERS: PCP Family Medicine; Referring Provider Internal Medicine Gastroenterology; Visit Provider Internal Medicine Gastroenterology
DX: K62.5 Hemorrhage of anus and rectum (principal); D64.9 Anemia, unspecified
CPT/HCPCS: 36415; 83540; 85027

== ENCOUNTER → 2024-12-23 | Outpatient (CLI) | payer MEDICARE, SELFPAY ==
--- NOTE | 2024-12-23 14:59 | RAD_ITS ---
PROCEDURE: Right knee radiographs, four views 12/23/2024 REASON FOR EXAM: PAIN TECHNIQUE: Four views of the right knee were obtained. COMPARISON: None available FINDINGS: Four views of the right knee were obtained. Bones are osteopenic. No acute fracture or dislocation. Mild degenerative changes of the lateral and patellofemoral compartments. Moderate medial compartment narrowing. No sizeable joint effusion. RAD/Knee 4 or More Views IMPRESSION: Osteopenia. No acute bony abnormality of the right knee. 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 No sizable joint effusion. Reading Location: [facility]
== END | disposition home or self-care (01) ==
LOC: MTRAD 14:55
PROVIDERS: PCP Family Medicine; Referring Provider Family Medicine; Visit Provider Family Medicine
DX: M25.561 Pain in right knee (principal)
CPT/HCPCS: 73564

== ENCOUNTER → 2025-08-10 | Outpatient (CLI) | payer MEDICARE, SELFPAY ==
[2025-08-10 12:25] LABS: AST(SGOT) 24 U/L (<=31); Alanine Aminotransfer ALT/SGPT 15 U/L (<=34); Albumin, Serum 4.1 g/dL (3.4-4.8); Alkaline Phosphatase 77 U/L (35-104); Anion Gap 10 (5-15); BUN 16 mg/dL (4-19); BUN/Creat Ratio 19.8 RATIO (10-20); Calcium,Total 9.1 mg/dL (7.6-11.0); Carbon Dioxide 27.6 mmol/L (21.0-32.0); Chloride 105 mmol/L (98-108); Cholesterol 241 mg/dL (<=200); Globulin 2.4 g/dL (2.2-4.2); Glucose 90 mg/dL (70-99); Low Density Lipoprotein Calc. 137 mg/dL; Potassium 4.2 mmol/L (3.3-5.1); Triglycerides 59 mg/dL; Very Low Density Lipoprotein 12 mg/dL (5-40); cholesterol:hdl ratio screen 2.57
[2025-08-10 14:22] LABS: Vitamin D,25 Hydroxy 118.0 ng/mL (30-100)
== END | disposition home or self-care (01) ==
LOC: MFPLAB 08:34
PROVIDERS: PCP Family Medicine; Visit Provider Family Medicine
DX: Z00.00 Encounter for general adult medical examination without abnormal findings (principal); E55.9 Vitamin D deficiency, unspecified
CPT/HCPCS: 36415; 80053; 80061; 82306

== ENCOUNTER → 2025-08-10 | Outpatient (CLI) | payer MEDICARE, SELFPAY ==
--- NOTE | 2025-08-10 07:56 | BD_ITS ---
PROCEDURE: DEXA BONE DENSITY STUDY 08/10/2025 REASON FOR EXAM: F, age 75 y/o . Postmenopausal. TECHNIQUE: Procedure Code: BDDBD Modality: DX Procedure: DEXA BONE DENSITY STUDY COMPARISON: November 28, 2021. FINDINGS: BMD and T-SCORES Lumbar spine: 0.962 g/cm2, T-score -0.8 Levels: L1 through L4 Change from prior: Improvement of 0.5%. Left femoral neck: 0.493 g/cm2, T-score -3.2 Femoral neck comparison data not recommended for monitoring change. Left total hip: 0.683 g/cm2, T-score -2.1 Change from prior: Improvement of 1.2%. Right femoral neck: 0.569 g/cm2, T-score -2.5 Femoral neck comparison data not recommended for monitoring change. Right total hip: 0.705 g/cm2, T-score -1.9 Change from prior: Loss of 1%. The World Health Organization has defined the following categories based on bone density: Normal bone density: T-score equal to or greater than -1.0 Osteopenia: T-score between -1.0 and -2.5 Osteoporosis: T-score equal to or less than -2.5 FRAX (or Comparable) Fracture Risk Assessment: 10 Year Probability of Fracture: Major Osteoporotic Fracture: 36% Hip Fracture: 28% (Note: FRAX is not to be reported in setting of normal range bone density, osteoporosis on DEXA, known history of osteoporosis, prior osteoporotic hip or vertebral fracture, or for any patient undergoing pharmacological treatment for bone loss.) The National Osteoporosis Foundation (NOF) recommends pharmacological treatment for patients with a FRAX 10-year risk of 3% or higher for a hip fracture, or 20% or higher for a major osteoporotic fracture, to prevent osteoporosis and reduce fracture risk. The patient does meet the pharmacological treatment recommendations for prevention of osteoporosis. BD/Dexa Bone Density Study IMPRESSION: OSTEOPOROSIS. Recommend follow-up as clinically warranted. Reading Location: [place] [id number]
--- OUTSIDE RECORDS SUMMARY | 2025-08-10 08:17 | XMS RPT_ITS | CCD ---
Author Organization [facility] Care Team Providers Care Weigher Operator Name Role Phone Dr. Alfredo Morris Primary Care Provider [phone] Dr. Slime Forrester Attending Provider Dr. Janny Kline Referring Provider [phone] Alexandra FRAIRE, Dr. Fuentes Primary Care Provider Alexandra FRAIRE, Dr. Fuentes Attending Provider [phone] Alexandra FRAIRE, Dr. Fuentes Referring Provider Alfredo Morris Primary Care Unavailable Rubio Casillas Referring Unavailable Rubio Casillas Attending Unavailable Alfredo Morris Attending Unavailable Alfredo Morris Primary Care Unavailable Alfredo Morris Referring Unavailable Alfredo Morris Primary Care Unavailable Alfredo Morris Referring Unavailable Alexandra, Alfredo Attending Unavailable Allergies Allergy Classification Reported Allergen(s) Allergy Type Date of Onset Reaction(s) Facility (5 sources) Sulfamethoxazole Drug Allergy [address] [facility] (5 sources) Trimethoprim Drug Allergy [address] [facility] (1 source) Sulfamethoxazole Drug Allergy 3 [facility] (1 source) Trimethoprim Drug Allergy 3 [facility] Medications Current Medications Medication Drug Class(es) Dates Sig (Normalized) Sig (Original) acetaminophen 325 mg / oxyCODONE hydrochloride 5 mg oral tablet (12 sources) Opioid Agonist Start: 01-15-2023 End: 02-05-2023 take 1 tablet by mouth every eight hours as needed for pain Oxycodone-Acetaminop hen (Percocet) 5-325 mg tablet Active 1 {tbl} PO Q8H as needed for pain 10 3 February 05, 2023 Alendronate-Vitamin D3 (7 sources) Start: 01-09-2023 take 1 tablet by mouth every week Alendronate-Vitamin D3 Active 1 TABLET PO EVERY WEEK January 09, 2023 12:00am Alendronate-Vitamin D3 70 mg- 2,800 unit Tablet (1 source) Start: 01-09-2023 Alendronate-Vitamin D3 70 mg- 2,800 unit Tablet Active 1 {tbl} PO EVERY WEEK January 09, 2023 12:00am cephalexin 500 mg oral capsule (12 sources) Cephalosporin Antibacterial Start: 01-15-2023 End: 02-05-2023 take 1 capsule by mouth every twelve hours Cephalexin 500 mg capsule Active 500 mg PO EVERY 12 HOURS 02 28February 05, 2023 11:55am ondansetron 8 mg oral tablet (5 sources) Serotonin-3 Receptor Antagonist Start: 02-05-2023 take 1 tablet by mouth every eight hours as needed for nausea Ondansetron Hcl 8 mg tablet Active 8 mg PO EVERY 8 HOURS NEEDED as needed for Nausea 16 04February 05, 2023 12:00am phenazopyridine hydrochloride 200 mg oral tablet (7 sources) Start: 01-15-2023 take 1 tablet by mouth three times daily as needed for muscle spasms Phenazopyridine (Pyridium) 200 mg tablet Active 200 mg PO 3 TIMES DAILY NEEDED as needed for Bladder Spasms 26 04January 15, 2023 12:00am Problems Active Problems Problem Classification Problem Date Documented Da te Episodic/Chronic Calculus of urinary tract (13 sources) Obstruction of pelviureteric junction; Translations: [Calculus of ureter] 01-15-2023 Episodic Other acquired deformities (10 sources) Mallet finger; Translations: [Mallet finger of left finger(s)] 03-09-2021 Episodic Past or Other Problems Problem Classification Problem Date Documented Da te Episodic/Chronic Gastrointestinal hemorrhage (1 source) Hemorrhage of anus and rectum; Translations: [Hemorrhage of anus and rectum] Onset: 09-05-2024 Episodic Other non-traumatic joint disorders (1 source) Pain in right knee; Translations: [Pain in right knee] Onset: 12-28-2024 Episodic Results Test Name Value Interpretation Reference Range Facility Knee 4 or More Viewson 12-23 Knee 4 or More Views [facility] Imaging Services [address], [place] [id number] Knee 4 or More Views MR#: [id number] Acct: [id number] Name: GARRETT AGGARWAL Rep #: [id number] : 1950 F 74 From: Werner Hudson i DO PCP: Dr. Alfredo Morris MD Status: REG CLI Study: Knee 4 or More Views Date of Exam: 12/23/24 Exam# [id number] Ordering Dr: Alfredo Morris MD PROCEDURE: Right knee radiographs, four views 12/23/2024 REASON FOR EXAM: PAIN TECHNIQUE: Four views of the right knee were obtained. COMPARISON: None available FINDINGS: Four views of the right knee were obtained. Bones are osteopenic. No acute fracture or dislocation. Mild degenerative changes of the lateral and patellofemoral compartments. Moderate medial compartment narrowing. No sizeable joint effusion. RAD/Knee 4 or More Views IMPRESSION: Osteopenia. No acute bony abnormality of the right knee. 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 No sizable joint effusion. Reading Location: [facility] CC: Dr. Alfredo Morris MD Wood Crew Supervisor: Signed Normal [facility] CBC-Complete Blood Cnt No Di ffon 08-08-2024 Erythrocyte distribution width (RBC) [Ratio] 11.3 % Low 11.6-14.6 [facility] Comment on above: Performed By: #### L 100.0500, L503.6150 #### [facility] [address], [place], [id number] Hematocrit (Bld) [Volume fraction] 39.6 % Normal 37-47 [facility] Comment on above: Performed By: #### L 100.0500, L503.6150 #### [facility] [address] [place], [place], [id number] (870) Hemoglobin (Bld) [Mass/Vol] 13.0 g/dL Normal 12.0-15.0 [facility] Comment on above: Performed By: #### L 100.0500, L503.6150 #### [facility] [address] [place], [address] MCH (RBC) [Entitic mass] 31.2 pg Normal 27.0-32.0 [facility] Comment on above: Performed By: #### L 100.0500, L503.6150 #### [facility] [address] [place], [address] MCHC (RBC) [Mass/Vol] 32.8 g/dL Normal 32-36 [facility] Comment on above: Performed By: #### L 100.0500, L503.6150 #### [facility] [address] [place], [address] MCV (RBC) [Entitic vol] 95.0 fL Normal 81-99 [facility] Comment on above: Performed By: #### L 100.0500, L503.6150 #### [facility] [address] [place], [address] Platelet mean volume (Bld) [Entitic vol] 9.0 fL Normal 6.2-12.0 [facility] Comment on above: Performed By: #### L 100.0500, L503.6150 #### [facility] [address] [place], [address] Platelets (Bld) [#/Vol] 227 10*3/uL Normal 150-450 [facility] Comment on above: Performed By: #### L 100.0500, L503.6150 #### [facility] [address] [place], [address] RBC (Bld) [#/Vol] 4.17 10*6/uL Low 4.2-5.4 [facility] Comment on above: Performed By: #### L 100.0500, L503.6150 #### [facility] [address] [place], [address] RDW SD 39.2 fl Normal 35.1-43.9 [facility] Comment on above: Performed By: #### L 100.0500, L503.6150 #### [facility] [address] [place], [address] WBC (Bld) [#/Vol] 6.6 10*3/uL Normal 4.4-11.0 [facility] Comment on above: Performed By: #### L 100.0500, L503.6150 #### [facility] [address] [place], [address] Ironon 08-08-2024 Iron [Mass/Vol] 65 ug/dL Normal 50-170 [facility] Comment on above: Performed By: #### L 100.0500, L503.6150 #### [facility] [address] [place], [address] Calcium oxalate dihydrate cr ystals detection in stone by infrared spectroscopyOrdered By: Janny Kline on 02-05-2023 Calcium oxalate dihydrate crystals Infrared spectroscopy Ql (Stone) 40 % [facility] Color of specimen determinat ionOrdered By: Janny Kline on 02-05-2023 Color (Unsp spec) [facility]OWN [facility] - Miscellaneous t estsOrdered By: Janny Kline on 02-05-2023 Service comment (Unsp spec) [Interp] See comment [facility] Comment on above: Calculus received we t. Wet calculi must be dried beforeanalysis, which delays reporting of results. Leaving calculiwet (such as water, saline, blood, urine) may lead tochanges in composition. Physician questions regarding Calculi Analysis contactLabCorp at: [phone]. Calculi report will follow via computer, mail or courierdelivery. Measurement of weight of sto neOrdered By: Janny Kline on 02-05-2023 Weight (Stone) [address] [facility] No Panel InformationOrdered By: Janny Kline on 02-05-2023 Stone Analysis (T) See comment [facility] Comment on above: Percentage (Represen ts the % composition) Stone Calcium Oxalate Monohydrate 60 % [facility] Origin of StoneOrdered By: Yazmin kingly Eliud on 02-05-2023 Origin Nom (Stone) LEFT URETER [facility] Size of stoneOrdered By: Marion Kline on 02-05-2023 Size (Stone) [Entitic vol] 2x[address] [facility] Comment on above: Multiple pieces rece ived. Dimensions of the largest piece reported. Thin prep Papanicolaou smear with manual screeningOrdered By: Janny Kline on 02-05-2023 Thin prep Papanicolaou smear with manual screening See comment [facility] Comment on above: Photograph will foll ow under a separate cover Basophil percentageOrdered B y: Dr. Kline on 12-24-2022 Basophil percentage < 0.9 mg/dL 0.55-1.02 [facility] No Panel InformationOrdered By: Dr. Kline on 12-24-2022 Bedside Estimated GFR (eGFR) > 60.0000 mL/min >60 [facility] Cytology report of Body flui d Cyto stainOrdered By: Dr. Kline on 12-10-2022 Cytology report Cyto stain Doc (Body fld) SEE PATHOLOGY REPORT [facility] Comment on above: Specimen submitted t o Anatomical Pathology Department for testing. Culture, urineOrdered By: Lori Joy on 11-20-2022 Bacteria identified Cx Nom (U) Positive [facility] Absolute lymphocyte countOrd ered By: Trista Joy on 11-19-2022 Lymphocytes Auto (Unsp spec) [#/Vol] 1.57 10*3/uL 0.83-4.51 [facility] Basophil percentageOrdered B y: Trista Joy on 11-19-2022 Basophils/100 WBC (Bld) 1.0 % 0-1 [facility] Bilirubin [Mass/Vol] 0.50 mg/dL 0.20-1.00 [facility] Comment on above: For patients on eltr ombopag therapy, use of Dimension [place] TBIL is not recommended. Chloride [Moles/Vol] 107 mmol/L 98-107 [facility] Eosinophils/100 WBC (Bld) 2.3 % 0-5 [facility] Glucose [Mass/Vol] 81 mg/dL 74-106 [facility] Neutrophils (Bld) [#/Vol] 2.8 10*3/uL 2.0-7.7 [facility] Neutrophils/100 WBC (Bld) 58.0 % 47-70 [facility] Potassium [Moles/Vol] 4.0 mmol/L 3.5-5.1 [facility] Protein [Mass/Vol] 7.1 g/dL 6.4-8.2 [facility] Sodium [Moles/Vol] 143 mmol/L 136-145 [facility] WBC (Bld) [#/Vol] 4.8 10*3/uL 4.4-11.0 [facility] Blood erythrocytes count (nu mber/volume)Ordered By: Trista Joy on 11-19-2022 RBC (Bld) [#/Vol] 4.17 10*6/uL 4.2-5.4 [facility] Blood hemoglobin measurement (mass/volume)Ordered By: Trista Joy on 11-19-2022 Hemoglobin (Bld) [Mass/Vol] 13.0 g/dL 12.0-15.0 [facility] Blood lymphocytes/100 leukoc ytesOrdered By: Trista Statrichard on 11-19-2022 Lymphocytes/100 WBC (Bld) 32.5 % 19-41 [facility] Blood monocytes/100 leukocyt esOrdered By: Trista Stathopoulos on 11-19-2022 Monocytes/100 WBC (Bld) 6.0 % 0-10 [facility] Blood platelet mean volumeOr dered By: Trista Statjohnnyoularmand on 11-19-2022 Platelet mean volume (Bld) [Entitic vol] 9.4 fL 6.2-12.0 [facility] Determination of erythrocyte mean corpuscular volume (MCV)Ordered By: Trista Joy on 11-19-2022 MCV (RBC) [Entitic vol] 96.2 fL 81-99 [facility] Hematocrit Auto (Bld) [Volum e fraction]Ordered By: Trista Joy on 11-19-2022 Hematocrit (Bld) [Volume fraction] 40.1 % 37-47 [facility] - Chemistry and C hemistry - challengeOrdered By: Trista Joy on 11-19-2022 ALP [Catalytic activity/Vol] 77 U/L 45-117 [facility] ALT [Catalytic activity/Vol] 18 U/L 13-56 [facility] CO2 [Moles/Vol] 30.0 mmol/L 21.0-32.0 [facility] Globulin (S) [Mass/Vol] 3.2 g/dL 2.2-4.2 [facility] Urea nitrogen/Creatinine [Mass ratio] 27.8 mg/mg 10-20 [facility] - Hematology and Cell countsOrdered By: Trista [facility]mo[facility] hospitalt[facility] on 11-19-2022 Erythrocyte distribution width (RBC) [Entitic vol] 41.9 fL 35.1-43.9 [facility] Erythrocyte distribution width (RBC) [Ratio] 11.9 % 11.6-14.6 [facility] Immature granulocytes/100 WBC (Bld) 0.200 % 0.0-0.9 [facility] Comment on above: IG% - Immature Granu locytes (promyelocytes, myelocytes and metamyelocytes) > 1% indicates that a LEFT SHIFT is Present. MCH (RBC) [Entitic mass] 31.2 pg 27.0-32.0 [facility] Nucleated RBC/100 WBC (Bld) [Ratio] 0 % 0-5 [facility] MCHC Auto (RBC) [Mass/Vol]Or dered By: Trista Benita on 11-19-2022 MCHC (RBC) [Mass/Vol] 32.4 g/dL 32-36 [facility] No Panel InformationOrdered By: Trista Joy on 11-19-2022 Estimated GFR (MDRD) Amer 87 mL/min >60 [facility] Comment on above: GFR Calc Estimated GFR (MDRD) Non-Af Amer 72 mL/min >60 [facility] Comment on above: Non- GFR Calc Platelets bldOrdered By: Víctor Joy on 11-19-2022 Platelets (Bld) [#/Vol] 215 10*3/uL 150-450 [facility] Serum or plasma albumin aylin urement (mass/volume)Ordered By: Trista Joy on 11-19-2022 Albumin [Mass/Vol] 3.9 g/dL 3.2-5.0 [facility] Serum or plasma albumin/glob ulin mass ratioOrdered By: Tristareynaldo Joy on 11-19-2022 Albumin/Globulin [Mass ratio] 1.2 {ratio} 0.9-2.4 [facility] Serum or plasma calcium aylin urement (mass/volume)Ordered By: Trista Benita on 11-19-2022 Calcium [Mass/Vol] 9.4 mg/dL 8.5-10.1 [facility] Serum or plasma creatinine m easurement (mass/volume)Ordered By: Trista Joy on 11-19-2022 Creatinine [Mass/Vol] 0.83 mg/dL 0.55-1.02 [facility] Comment on above: The validity of the calculated GFR & GFRAA in patients over 70 years has not been determined. Clinical correlation is essential. Serum or plasma urea nitroge n measurement (mass/volume)Ordered By: Trista Joy on 11-19-2022 Urea nitrogen [Mass/Vol] 23 mg/dL 7-18 [facility] Thin prep Papanicolaou smear with manual screeningOrdered By: Trista [facility] on 11-19-2022 Thin prep Papanicolaou smear with manual screening 19 U/L 15-37 [facility] Thin prep Papanicolaou smear with manual screening 6 5-15 [facility] Thin prep Papanicolaou smear with manual screening 1070.0 mg/L NO RANGE EST. [facility] Vital Signs Date Time Vital Sign Value Performing Clinician Faci lity 02-05-2023 16:03-0400 Body temperature 98 [degF] Dr. Alfredo Morris Work Phone: [facility] 02-05-2023 16:03-0400 Diastolic blood pressure 83 mm[Hg] Dr. Alfredo Morris Work Phone: [facility] 02-05-2023 16:03-0400 Heart rate 90 /min Dr. Alfredo Morris Work Phone: [facility] 02-05-2023 16:03-0400 Respiratory rate 16 /min Dr. Alfredo Morris Work Phone: [facility] 02-05-2023 16:03-0400 SaO2% (BldA) [Mass fraction] 96 % Dr. Alfredo Morris Work Phone: [facility] 02-05-2023 16:03-0400 Systolic blood pressure 150 mm[Hg] Dr. Alfredo Morris Work Phone: [facility] 02-05-2023 10:35-0400 Body height 165.[address] Alfredo Morris Work Phone: [facility] 02-05-2023 10:35-0400 Body mass index (BMI) [Ratio] 17.8 kg/m2 Dr. Alfredo Morris Work Phone: [facility] 02-05-2023 10:35-0400 Body weight 48.[address] Alfredo Morris Work Phone: [facility] 01-15-2023 15:02-0400 Body temperature 97.8 [degF] Dr. Alfredo Morris Work Phone: [facility] 01-15-2023 15:02-0400 Diastolic blood pressure 88 mm[Hg] Dr. Alfredo Morris Work Phone: [facility] 01-15-2023 15:02-0400 Heart rate 94 /min Dr. Alfredo Morris Work Phone: [facility] 01-15-2023 15:02-0400 Respiratory rate 16 /min Dr. Alfredo Morris Work Phone: [facility] 01-15-2023 15:02-0400 SaO2% (BldA) [Mass fraction] 99 % Dr. Alfredo Morris Work Phone: [facility] 01-15-2023 15:02-0400 Systolic blood pressure 160 mm[Hg] Dr. Alfredo Morris Work Phone: [facility] 01-15-2023 11:50-0400 Body height 165.[address] Alfredo Morris Work Phone: [facility] 01-15-2023 11:50-0400 Body mass index (BMI) [Ratio] 17.9 kg/m2 Dr. Alfredo Morris Work Phone: [facility] 01-15-2023 11:50-0400 Body weight [address] Alfredo Morris Work Phone: [facility] Encounters Encounter Date Encounter Type Care Provider Facility Start: 08-10-2025 ambulatory Alfredo Morris Facility:[facility] Start: 12-23-2024 End: 12-23-[address] Alfredo Morris MD Work Phone: [facility] Work Phone: Start: 12-23-2024 End: 12-23-[address] Alfredo Morris MD -Radiology, [place] Work Phone: Start: 12-23-2024 End: 12-23-2024 ambulatory Alfredo Morris Facility:[facility] Start: 08-08-2024 End: 08-08-2024 ambulatory Alfredo Morris Facility:[facility] Start: 05-01-2023 End: 05-01-[address] [facility] Work Phone: Start: 05-01-2023 End: 05-01-[address] [facility]Ul[facility]ound, [facility] Work Phone: Start: 04-09-2023 End: 04-09-[address] Alfredo Morris Work Phone: [facility] Work Phone: Start: 04-09-2023 End: 04-09-[address] Alfredo Morris Work Phone: [facility]-Cat Scan, [facility] Work Phone: Start: 02-05-2023 End: 02-05-2023 Admission to same day surgery center [facility] Start: 02-05-2023 End: 02-05-[address] Alfredo Morris Work Phone: [facility] Work Phone: Start: 02-02-2023 End: 02-02-[address] Alfredo Morris Work Phone: [facility] Work Phone: Start: 02-02-2023 End: 02-02-[address] Alfredo Morris Work Phone: [facility] Start: 01-26-2023 End: 01-26-[address] Alfredo Morris Work Phone: [facility] Work Phone: Start: 01-26-2023 End: 01-26-[address] Alfredo Morris Work Phone: [facility] Start: 01-15-2023 End: 01-15-2023 Admission to same day surgery center [facility] Start: 01-15-2023 End: 01-15-[address] Alfredo Morris Work Phone: [facility] Work Phone: Start: 01-06-2023 End: 01-06-2023 Non-patient / Non-visit Dr. Alfredo Morris Work Phone: [facility] Start: 01-06-2023 End: 01-06-[address] Alfredo Morris Work Phone: [facility] Work Phone: Start: 01-06-2023 End: 01-06-[address] Alfredo Morris Work Phone: [facility]-Pulmonary Services/Neurology Start: 01-05-2023 End: 01-05-[address] [facility] Start: 12-26-2022 End: 12-26-[address] [facility] Start: 12-24-2022 End: 12-24-[address] [facility] Work Phone: Start: 12-24-2022 End: 12-24-2022 Patient encounter procedure [facility] Scan, [facility] Start: 12-10-2022 End: 12-10-[address] [facility] Work Phone: Start: 12-10-2022 End: 12-10-[address] [facility]Laboratory, Spec[facility] Start: 11-19-2022 End: 11-19-[address] [facility], [place] [facility] Procedures Date Procedure Procedure Detail Performing Clinician Start: 12-23-2024 X-ray of knee, four or more views Dr. Alfredo Morris MD Work Phone: Start: 05-01-2023 US urinary tract Start: 04-09-2023 CT of chest without contrast Dr. Alfredo Morris Work Phone: Start: 02-05-2023 Fluoroscopic guidance Ignacio Morris Work Phone: Start: 02-05-2023 Cystoscopy and retro grade pyelography Dr. Alfredo Morris Work Phone: Start: 02-02-2023 Diagnostic radiograp hy of abdomen Dr. Alfredo Morris Work Phone: Start: 01-26-2023 Diagnostic radiograp hy of abdomen Dr. Alfredo Morris Work Phone: Start: 01-15-2023 Extracorporeal shock wave lithotripsy Dr. Alfredo Morris Work Phone: Start: 01-05-2023 CT of thorax with contrast Dr. Alfredo Morris Work Phone: Start: 12-26-2022 Diagnostic radiograp hy of abdomen Start: 12-24-2022 Computed tomography of abdomen and pelvis with contrast Urine culture Plan of Treatment Date Care Activity Detail Author Start: 02-05-2023 Anes lithotrp xtrcorp shock wave w/o water bath ANESTH KIDNEY STONE DESTRUCT [facility] Start: 02-05-2023 Cysto/uretero w/lithotripsy &indwell stent insrt CYSTO/URETERO W/LITHOTRIPSY [facility] Start: 02-05-[address] [facility] Start: 01-15-2023 Anes lithotrp xtrcorp shock wave w/o water bath ANESTH KIDNEY STONE DESTRUCT [facility] Start: 01-15-2023 Cysto w/insert ureteral stent CYSTOSCOPY AND TREATMENT [facility] Start: 01-15-2023 Lithotripsy xtrcorp shock wave FRAGMENTING OF KIDNEY STONE [facility] Start: 01-15-[address] [facility] Calculus analysis [facility] Measurement of weigh t of calculus [facility] Origin of Stone [facility] Patient referral [facility] Work Phone: Specimen color determination [facility] Payers Date Payer Category Payer Private Health Insurance 101 [id number] 2024 Self-pay [id number] Unknown [id number] Unknown [id number] Unknown [id number] Social History Date Type Detail Facility Start: 03-09-2021 End: 01-09-2023 Tobacco smoking status NHIS Unknown if ever smoked [facility] Start: 1950 Sex Assigned At Female [facility] Start: 01-09-2023 Tobacco smoking status NHIS Never smoked tobacco (finding) [facility] Start: 12-28-2024 Sex Female (finding) [facility] NEGATED: Highlighted row [facility] Medical Equipment Procedure Code Equipment Code Equipment Origin al Text Equipment Identifier Dates Lithotripsy, ESWL Polymeric uret eral stent [id number] FDA Start: 01-15-2023 Cystoscopy, with retrograde pyelogram, ureteroscopy, laser procedure, and stent inser ([id number]) Polymeric ureteral stent ()[id number] FDA Start: 02-05-2023 Goals Date Patient Goal Desired Activity /State Functional Status Date Assessment Result Facility 02-05-2023 Functional status Ambulates;Bathroom Priv ilege [facility] Work Phone: 01-15-2023 Functional status Ambulates [facility] Work Phone: Mental Status Date Assessment Result Facility 02-05-2023 Cognitive function Voice/Name;Touch/Shaki ng [facility] Work Phone: 01-15-2023 Cognitive function Voice/Name [facility] Work Phone: Radiology Diagnostic study note 12-25-2024 Note Date & Type Note Facility 12-25-2024 Radiology Diagnostic study note [facility] Imaging Services [address], [place] [id number] Knee 4 or More Views MR#: [id number] Acct: [id number] Name: GARRETT AGGARWAL Rep #: [id number] : 1950 F 74 From: [place] DO PCP: Dr. Alfredo Morris MD Status: REG C PATRICIA Study:Knee 4 or More Views Date of Exam: 12/23/24 Exam# [id number] Ordering Dr: Alfredo Morris MD PROCEDURE: Right knee radiographs, four views 12/23/2024 REASON FOR EXAM: PAIN TECHNIQUE: Four views of the right knee were obtained. COMPARISON: None available FINDINGS: Four views of the right knee were obtained. Bones are osteopenic. No acute fracture or dislocation. Mild degenerative changes of the lateral and patellofemoral compartments. Moderate medial compartment narrowing. No sizeable joint effusion. RAD/Knee 4 or More Views IMPRESSION: Osteopenia. No acute bony abnormality of the right knee. 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 No sizable joint effusion. Reading Location: [facility] CC: Dr. Alfredo Morris MD ~ Wood Crew Supervisor: Signed [facility] Discharge summary 02-05-2023 Note Date & Type Note Facility 02-05-2023 Discharge summary Note Date/Time February 05, 2023 11:54 am [facility] Medical Records Department [address] [place] [address] Instructions for Home/Discharge Instructions 02/05/23 1153 MR#: [id number] Acct: [id number] Name: GARRETT AGGARWAL Rep #:[id number] : 1950 72 From: Janny Pierre PCP: Dr. Alfredo Morris MD Status:REG S DC Discharge Instructions Diet Discharge Diet: No restrictions Activity Discharge Activity: Return to Normal Activity Dressing / Incision Call your doctor if you observe: Fever of 101 or Higher, Inability to urinate and Inability to have a bowel movement Follow Up Care Please Follow Up With: Janny Kline MD When: Call the office for appointment Test Results: Test results from this visit will be discussed in further detail at your follow-up appointment, if applicable. Discharge Plan Admission Attending Provider: Janny Kline Primary Care Provider: Alfredo Morris Discharge Orders/Prescriptions Prescriptions: New ondansetron HCl [ondansetron HCl] 8 mg tablet 8 mg PO Q8H PRN PRN (Reason: Nausea) 7 Days Qty: 20 0RF Continued alendronate-vitamin D3 70 mg- 2,800 unit Tablet 1 tab PO QWEEK phenazopyridine [Pyridium] 200 mg tablet 200 mg PO TID PRN PRN (Reason: Bladder Spasms) 7 Days Qty: 30 0RF oxycodone-acetaminophen [Percocet] 5-325 mg tablet 1 tab PO Q8H PRN (Reason: pain) 3 Days Qty: 10 0RF cephalexin 500 mg capsule 500 mg PO Q12 3 Days Qty: 6 0RF Referrals / Follow Up: Alfredo Morris MD [Primary Care Provider] - Disposition Disposition (needs filled in before D/C Order can be placed): Home, Self Care 02/05/23 1252<Electronically signed by Janny Kline MD>Janny Kline MD CC: Dr. Alfredo Morris MD ~ Signed [facility] Work Phone: Procedure note 02-05-2023 Note Date & Type Note Facility 02-05-2023 Procedure note [facility] Procedure note 01-15-2023 Note Date & Type Note Facility 01-15-2023 Procedure note [facility] Discharge summary 01-15-2023 Note Date & Type Note Facility 01-15-2023 Discharge summary Note Date/Time January 15, 2023 12:17pm [facility] Medical Records Department [address] [place] [address] Instructions for Home/Discharge Instructions 01/15/23 1216 MR#: [id number] Acct: [id number] Name: GARRETT AGGARWAL Rep #:[id number] : 1950 72 From: Janny Pierre PCP: Dr. Alfredo Morris MD Status:REG S DC Discharge Instructions Diet Discharge Diet: No restrictions Activity Discharge Activity: Return to Normal Activity May resume sexual activity in: No Restrictions Dressing / Incision Call your doctor if you observe: Fever of 101 or Higher, Inability to urinate and Inability to have a bowel movement Follow Up Care Please Follow Up With: Janny Kline MD When: call the office for appt Test Results: Test results from this visit will be discussed in further detail at your follow-up appointment, if applicable. Discharge Plan Admission Attending Provider: Janny Kline Primary Care Provider: Alfredo Morris Discharge Orders/Prescriptions Prescriptions: New oxycodone-acetaminophen [Percocet] 5-325 mg tablet 1 tab PO Q8H PRN (Reason: pain) 3 Days Qty: 10 0RF cephalexin [cephalexin] 500 mg capsule 500 mg PO Q12 3 Days Qty: 6 0RF phenazopyridine [Pyridium] 200 mg tablet 200 mg PO TID PRN PRN (Reason: Bladder Spasms) 7 Days Qty: 30 0RF Continued alendronate-vitamin D3 70 mg- 2,800 unit Tablet 1 tab PO QWEEK Referrals / Follow Up: Alfredo Morris MD [Primary Care Provider] - Disposition Disposition (needs filled in before D/C Order can be placed): Home, Self Care 01/15/23 1423<Electronically signed by Janny Kline MD>Janny Kline MD CC: Dr. Alfredo Morris MD ~ Signed [facility] Work Phone: History and physical note 01-15-2023 Note Date & Type Note Facility 01-15-2023 History and physi shital note Note Date/Time January 15, 2023 12:16pm [facility] Medical Records Department [address] [place] [id number] History & Physical Exam 01/15/23 1212 MR#: [id number] Acct: [id number] Name: GARRETT AGGARWAL Rep #:[id number] : 1950 72 From: Janny Pierre PCP: Dr. Alfredo Morris MD Status:REG S [place] Location: [place] [address] HPI - General General Chief Complaint: Gross hematuria, left UPJ calculus with obstruction HPI Narrative GARRETT AGGARWAL, is a 72 F who presents for definitive management of a left UPJ stone with obstruction and gross hematuria. Informed consent has been obtained. She has had no nausea, vomiting, fever, chills. She has a negative preoperative urine culture. [facility] Medical History (Updated 01/15/23 @ 12:[address] Janny Kline MD) Gross hematuria History of perineal laceration History of stress test Hoarseness Non-smoker Obstruction of left ureteropelvic junction due to stone Osteoporosis Wears contact lenses Wears glasses Home Medications alendronate 70 mg-cholecalciferol (vitamin D3) 2,800 unit tablet 1 tab PO QWEEK 01/09/23 [History Last Taken Unknown] Allergy/AdvReac Type Severity Reaction Status Date / Time No Known Allergies Allergy Verified 01/15/23 11:49 Surgical History History of colonoscopy Social History Smoking Status: Never smoker ROS Constitutional Constitutional: Reports systems reviewed and no addt'l complaints, except as documented Eyes Eyes: Reports systems reviewed and no addt'l complaints, except as documented ENT HEENT: Reports systems reviewed and no addt'l complaints, except as documented Cardiovascular Cardiovascular: Denies chest pain, diaphoresis, dizziness or dyspnea Respiratory/Chest Respiratory/Chest: Reports systems reviewed and no addt'l complaints, except as documented; Denies change in mental status, chest congestion, chest tightness orcough Gastrointestinal Gastrointestinal: Denies anorexia, nausea or vomiting Genitourinary Genitourinary: Reports hematuria; Denies flank pain Musculoskeletal Musculoskeletal: Reports systems reviewed and no addt'l complaints, except as documented Integumentary Integumentary: Reports systems reviewed and no addt'l complaints, except as documented Neurologic Neurologic: Reports systems reviewed and no addt'l complaints, except as documented Psychiatric Psychiatric: Reports systems reviewed and no addt'l complaints, except as documented Endocrine Endocrinology: Reports systems reviewed and no addt'l complaints, except as documented Hematologic/Lymphatic Hematologic/Lymphatic: Reports systems reviewed and no addt'l complaints, exceptas documented Allergic/Immunologic Allergic/Immunologic: Reports systems reviewed and no addt'l complaints, except as documented Vital Signs Vital Signs Vital Signs: 01/15/23 11:50 01/15/23 11:50 Temperature 97.4 F L Temperature Source Temporal Pulse Rate 61 Respiratory Rate 16 Respiratory Pattern Normal Blood Pressure 133/55 H Blood Pressure Mean 81 Blood Pressure Source Monitor Blood Pressure Position Sitting Blood Pressure Location Left Arm Pulse Ox 100 Oxygen Delivery Method Room Air Weight Weight: 49 kg Body Mass Index (BMI) 17.9 Physical Exam Const alert, oriented x3 and no apparent distress General Appearance: cooperative, comfortable and well kempt HEENT normocephalic and head/scalp atraumatic Eyes General Eye: normal appearance of both eyes Neck supple General: trachea midline Lymph Lymphatic: no lymphedema noted Chest inspection of chest normal Resp normal respiratory effort, normal air movement and no retractions Cardio regular rate and regular rhythm GI normal to inspection, nondistended, normoactive bowel sounds no CVA tenderness Back/Spine no CVA tenderness Extremity normal to inspection Skin no rashes or lesions noted, no wounds, skin turgor normal, no jaundice, no petechiae and no mottling Neuro oriented x3, CN's II-XII intact bilaterally and moves all extremities Psych mental status grossly normal, thought process normal and cooperative Assessment & Plan Assessment/Plan (1) Obstruction of left ureteropelvic junction due to stone: PLAN: Plan cystoscopy with left ureteral stent insertion, left extracorporeal shockwave lithotripsy 01/15/23 1216 <Electronically signed by Janny Kline MD> Cosigner Signature (if applicable): CC: Dr. Janny Kline MD; Dr. Alfredo Morris MD~ Signed [facility] Work Phone: Evaluation note Note Date & Type Note Facility Evaluation note No assessment information availa ble [facility] Work Phone: Evaluation note Note Date & Type Note Facility Evaluation note Diagnosis Onset Date Obstruction of left ureterop elvic junction due to stone acute [facility] Work Phone: Hospital Discharge instructions Note Date & Type Note Facility Hospital Discharge instructions Additional Instructions Implant Used?: Yes [facility] Work Phone: Reason for referral (narrative) Note Date & Type Note Facility Reason for referral (narrative) No reason for referral information available [facility] Work Phone: Advance Directives No Advanced Directives Records Found Advance Directive Response Recorded Date/ Time Living Will Yes March 09, 2021 4:18pm Power of Cardiac Cath Tech Yes March 09 4:18pm Advance Directive Response Recorded Date/ Time Living Will Yes January 09, 2023 8:19am Power of Cardiac Cath Tech Yes January 09 8:19am Advance Directive Response Recorded Date/ Time Name of Medical Power of Cardiac Cath Tech ON FILE, JAZMYN AGGARWAL January 09, 2023 8:19am Living Will Yes January 09, 2023 8:19am Power of Cardiac Cath Tech Yes January 09 8:19am Advance Directive Response Recorded Date/ Time Living Will Yes January 09, 2023 8:19am Power of Cardiac Cath Tech Yes January 09 8:19am Name of Medical Power of Cardiac Cath Tech ON FILE, JAZMYN AGGARWAL January 09, 2023 8:19am Chief Complaint and Reason for Visit Chief Complaint GROSS HEMATURIA STONES/ KUB Chief Complaint GROSS HEMATURIA STONES/ KUB LUNG NODULE OBSTRUCTION OF LT UPJ DUE TO STONE PREOP Chief Complaint GROSS HEMATURIA STONES/ KUB LUNG NODULE OBSTRUCTION OF LT UPJ DUE TO STONE PREOP LEFT ESWL CYSTO STENT INS Reason for Visit Obstruction of left ureteropelvic junction due to stone Chief Complaint GROSS HEMATURIA STONES/ KUB LUNG NODULE OBSTRUCTION OF LT UPJ DUE TO STONE PREOP LEFT ESWL CYSTO STENT INS KUB- Hydronephrosis/ KIDNEY STONE Reason for Visit Obstruction of left ureteropelvic junction due to stone Chief Complaint GROSS HEMATURIA STONES/ KUB LUNG NODULE OBSTRUCTION OF LT UPJ DUE TO STONE PREOP LEFT ESWL CYSTO STENT INS KUB- Hydronephrosis/ KIDNEY STONE KUB ADD ON Reason for Visit Obstruction of left ureteropelvic junction due to stone Chief Complaint GROSS HEMATURIA STONES/ KUB LUNG NODULE OBSTRUCTION OF LT UPJ DUE TO STONE PREOP LEFT ESWL CYSTO STENT INS KUB- Hydronephrosis/ KIDNEY STONE KUB ADD ON SOLITARY PULMONARY NODULE Reason for Visit Obstruction of left ureteropelvic junction due to stone Chief Complaint LEFT ESWL CYSTO STEN T INS KUB- Hydronephrosis/ KIDNEY STONE KUB ADD ON SOLITARY PULMONARY NODULE L HYDRONEPHROSIS/URETAL STONE Reason for Visit Obstruction of left ureteropelvic junction due to stone Chief Complaint Admit Date RIGHT KNEE PAIN December 23, 2024 2:5 3pm Summary Purpose Family History No Family History Records Found Additional Source Comments Care Teams (unrecognized sec tion and content) Team Status: Active Member Role Status Dates Dr. Gadiel Carlson MD Family Provider Active Dr. Alfredo Morris MD Primary Care Provider Active Team Status: Inactive Member Role Status Dates Dr. Alfredo Morris MD Primary Care Provider, Referring Provider Active ELIAN Solano Attending Provider Active Team Status: Inactive Member Role Status Dates Dr. Alfredo Morris MD Primary Care Provider Active Dr. Janny Kline MD Attending Provider Active Team Status: Inactive Member Role Status Dates Dr. Alfredo Morris MD Primary Care Provider Active Dr. Janny Kline MD Attending Provider, Referring P rovider Active Team Status: Active Member Role Status Dates Dr. Alfredo Morris MD Primary Care Provider Active Dr. Janny Kline MD Attending Provider, Referring Cherelle wendy Active Team Status: Active Member Role Status Dates Dr. Alfredo Morris MD Primary Care Provider Active Dr. Slime Forrester MD Attending Provider Active Dr. Janny Kline MD Referring Provider Active Team Status: Inactive Member Role Status Dates Dr. Alfredo Morris MD Primary Care Provi gloria, Attending Provider, Referring Provider Active Team Status: Inactive Member Role Status Dates Dr. Alfredo Morris MD Primary Care Provider Active Start: December 23, 2024 End: December 23, 2024 Dr. Alfredo Morris MD Attending Provider Active Start: December 23, 2024 End: December 23, 2024 Dr. Alfredo Morris MD Referring Provider Active Start: December 23, 2024 End: December 23, 2024 Goals (unrecognized section and content) Goals may be documented in a n alternate sectionGoals may be documented in an alternate sectionGoals may be documented in an alternate sectionGoals may be documented in an alternate section INFORMATION SOURCE (unrecogn ized section and content) DATE CREATED AUTHOR 08/03/2025 [facility] FOR RECORDS PERTAINING TO PATIENTS WHO ARE OR HAVE BEEN ENROLLED IN A CHEMICAL DEPENDENCY/SUBSTANCEABUSE PROGRAM, SOME INFORMATION MAY BE OMITTED. This clinical summary was aggregated from multiple sources. Caution should be exercised in using it in the provision of clinical care. This summary normalizes information from multiple sources, and as a consequence, information in this document may materially change the coding, format and clinical context of patient data. In addition, data may be omitted in some cases. CLINICAL DECISIONS SHOULD BE BASED ON THE PRIMARY CLINICAL RECORDS. [employer] provides no warranty or guarantee of the accuracy or completeness of information in this document.
== END | disposition home or self-care (01) ==
LOC: OPBD 07:56
PROVIDERS: PCP Family Medicine; Referring Provider Family Medicine; Visit Provider Family Medicine
DX: Z78.0 Asymptomatic menopausal state (principal)
CPT/HCPCS: 77080